=== PATIENT | male | born 1985 | race Caucasian/White ===

== ENCOUNTER 2018-12-28 18:50 | Emergency (ER) | payer SELFPAY ==
[~2018-12-28] VITALS: Ht 182.9 cm; Wt 106.0 kg
[2018-12-28 20:10] VITALS: BP 123/81
== END 2018-12-28 21:10 | disposition home or self-care (01) ==
LOC: ED 19:55
DX: G89.29 Other chronic pain (principal); R10.13 Epigastric pain; R63.4 Abnormal weight loss
CPT/HCPCS: 36415; 74177; 80053; 83690; 85025; 93005; 99284; J7030; Q9967

== ENCOUNTER 2019-06-09 18:34 | Emergency (ER) | payer MEDICAID ==
[~2019-06-09] VITALS: Ht 182.9 cm; Wt 107.0 kg
[~2019-06-09 18:34] MED LIST: MULT-658 PO
[2019-06-09 18:48] VITALS: BP 134/91
--- NOTE | 2019-06-09 19:38 | NUR ---
PT HERE WITH "BUMPS ON GENITAL AREA."
--- NOTE | 2019-06-09 20:05 | NUR ---
Patient/Caregiver given discharge instructions and they have confirmed that they understand the instructions. Patient ambulatory with steady gait.
== END 2019-06-09 20:07 | disposition home or self-care (01) ==
LOC: ED 20:00
DX: N50.9 Disorder of male genital organs, unspecified (principal); J45.909 Unspecified asthma, uncomplicated
CPT/HCPCS: 99283